=== PATIENT | female | born 1975 | race Caucasian/White ===

== ENCOUNTER → 2018-02-02 | Outpatient (CLI) | payer BC ==
[~2018-02-02] MED LIST: PERCOCET 5-3251 EACH PO; TAMSULOSIN HCL0.4 MG PO; ZOFRAN ODT4 MG PO
== END ==
LOC: RAD 14:29
DX: Z12.31 Encounter for screening mammogram for malignant neoplasm of breast (principal)

== ENCOUNTER → 2018-02-08 | Outpatient (CLI) | payer BC ==
--- NOTE | ~2018-02-08 | S ---
[facility] [place] [address] SURGICAL PATH RPT PROCEDURE Name: JESSY SANTOS Room #: REG CL [place].#: [id number] Admission: 02/08/18 Date of : 73 Discharge: Report #: [id number] Path Case #: [id number] PATHOLOGY REPORT COLLECTION DATE: 02/08/2018 RECEIVED DATE: 02/08/2018 SUBMITTING PHYS: Dr. Sav Long OTHER PHYS: Dr. Jaclyn Muniz SPECIMEN(S) RECEIVED: A.R breast lateral posterior * * * * * * * * * * * * FINAL DIAGNOSIS: Breast, right lateral posterior, sterotactic needle core biopsy: - Proliferative fibrocystic changes associated with adenosis, dilated ducts, stromal fibrosis, apocrine metaplasia, as well as usual ductal hyperplasia. - Coarse calcifications associated with benign breast tissue. - Negative for atypia or malignancy. COMMENT: Co-review: Dr. Birgit Abreu. (IUV:pit; 02/10/2018) PATHOLOGIST: Hillary Salgado M.D. REPORT ELECTRONICALLY SIGNED BY: Hillary Salgado M.D. DATE/TIME: 02/10/2018 14:54 * * * * * * * * * * * * GROSS PATHOLOGY: Received in formalin labeled "Jessy Santos," and additionally labeled on the requisition as, "right lateral posterior". Received are multiple needle cores of yellow-abdi fibrofatty tissue measuring 4.2 x 3.2 x 0.7 cm in aggregate dimensions. Also received is a plastic cassette containing multiple cores of yellow-abdi fibrofatty tissue measuring 1.8 x 1.4 x 0.5 cm in aggregate dimensions. The tissue in the cassette is transferred to cassette A1, and the remaining tissue is submitted in its entirety in cassette A2 through A4. The cold ischemic time is 10 minutes. The total formalin fixation time is 27 hours and 40 minutes. (CAA; 02/09/2018) CLINICAL HISTORY: Right breast calcifications [address] [address] SURGICAL PATH RPT PROCEDURE Name: JESSY SANTOS Room #: REG [facility].#: [id number] Admission: 02/08/18 Date of : 73 Discharge: Report #: [id number] Path Case #: [id number] INITIAL CPT CODE(S): A; 05690 Professional services performed by [facility] [address], [place] [address] Technical services performed by [facility] at [address] [place] [address], [address], [place] [address]. [facility] [address] [address] PHONE: [phone] DIRECTOR: Himanshu Abbott M.D. * * * END OF REPORT * * *
== END | disposition home or self-care (01) ==
LOC: RADSTEREO 00:37
DX: N60.81 Other benign mammary dysplasias of right breast (principal); N60.41 Mammary duct ectasia of right breast; N60.21 Fibroadenosis of right breast; Z79.891 Long term (current) use of opiate analgesic; Z87.442 Personal history of urinary calculi

== ENCOUNTER → 2018-11-11 | Outpatient (CLI) | payer BC | LOC: RAD 01:11 | DX: N63.10 Unspecified lump in the right breast, unspecified quadrant (principal); R92.2 Inconclusive mammogram; R92.0 Mammographic microcalcification found on diagnostic imaging of breast; R59.9 Enlarged lymph nodes, unspecified ==